=== PATIENT | male | born 1970 | race African-American/Black ===

== ENCOUNTER 2016-07-15 15:37 | Emergency (ER) | payer OTHER ==
[~2016-07-15] VITALS: Ht 180.3 cm; Wt 71.7 kg
[2016-07-15 15:49] VITALS: BP 134/66
== END 2016-07-15 16:15 | disposition home or self-care (01) ==
LOC: ER 15:39
DX: R06.02 Shortness of breath (principal); I25.2 Old myocardial infarction; J45.909 Unspecified asthma, uncomplicated; F17.210 Nicotine dependence, cigarettes, uncomplicated
CPT/HCPCS: A4606; Z7502; Z7610

== ENCOUNTER 2016-09-16 16:50 | Inpatient (IN) | payer OTHER ==
[~2016-09-16] VITALS: Ht 162.6 cm; Wt 72.6 kg
[2016-09-16] MEDS ORDERED: NITROGLYCERIN PACKET 1 GM PACKET TD ONE (17:00)
[2016-09-16] MEDS ORDERED: ONDANSETRON HCL/PF 4 MG/2 ML VIAL IVP ONE (17:00)
[2016-09-16] MEDS ORDERED: ASPIRIN 325 MG TABLET PO ONE (17:00)
[2016-09-16] MEDS ORDERED: MORPHINE SULFATE INJ 2 MG/ML DISP.SYRIN IV ONE (17:00)
--- NOTE | 2016-09-16 17:00 | NUR ---
PT BIB [facility] TO ER BED 10. IN CUSTODY. C/O SUDDEN ONSET MIDSTERNAL CHEST PAIN DESCRIBING IT PRESSURE AND SQUEEZING. PT WAS GIVEN NITRO AND ASPIRIN MANAGER PERFORMANCE W/ MINIMAL RELIEF. GOWNED AND PLACED ON MONITOR. AWAITING MD RIVERA.
--- NOTE | 2016-09-16 17:04 | NUR ---
DIRECTOR INTELLIGENCE ANALYSIS PROGRAMS AT BEDSIDE FOR BLOOD DRAW.
--- NOTE | 2016-09-16 17:05 | NUR ---
DR JACK AT BEDSIDE FOR EVAL.
[2016-09-16 17:09] LABS: EOSINOPHILS # (AUTO) 0.1 /CMM (0.0-0.7)
[2016-09-16 17:15] LABS: BASOPHILS # (AUTO) 0.3 /CMM (0.0-0.2); EOSINOPHILS % (AUTO) 1.5 % (0.0-6.0); HEMATOCRIT 45 % (39-51); HEMOGLOBIN 14.4 g/dL (13.5-17.5); LYMPHOCYTES # (AUTO) 2.1 /CMM (0.8-4.8); LYMPHOCYTES % (AUTO) 24.6 % (20.0-44.0); MEAN CORPUSCULAR HEMOGLOBIN 27 PG (26.0-33.0); MEAN CORPUSCULAR HGB CONC 32 g/dl (31.0-36.0); MEAN CORPUSCULAR VOLUME 83 fL (80-96); MONOCYTES # (AUTO) 0.5 /CMM (0.1-1.30); MONOCYTES % (AUTO) 6.3 % (2.0-12.0); NEUTROPHILS # (AUTO) 5.7 /CMM (1.8-8.9); NEUTROPHILS % (AUTO) 64.6 % (43.0-81.0); PLATELET COUNT (AUTO) 283 /CMM (150-450); RDW COEFFICIENT OF VARIATION 11.9 (11.5-15.0); WHITE BLOOD COUNT (AUTO) 8.7 K/uL (4.3-11.0)
[2016-09-16 17:19] LABS: CALCIUM, SERUM 9.2 mg/dL (8.5-10.1); CARBON DIOXIDE 28 mmol/L (21-32); CHLORIDE 104 mmol/L (98-107); CREATININE 1.1 mg/dL (0.6-1.3); GLUCOSE 111 mg/dL (74-106); POTASSIUM 3.6 mmol/L (3.5-5.1); SODIUM SERUM 139 mmol/L (136-145); UREA NITROGEN, BLOOD 13 mg/dL (7-18)
[2016-09-16 17:26] LABS: INR 0.95 (0.87-1.13); PROTHROMBIN TIME 9.9 SECS (9.5-12.7)
[2016-09-16] MEDS ORDERED: MORPHINE SULFATE INJ 4 MG/ML DISP.SYRIN ONE (17:26)
[2016-09-16] MEDS ORDERED: ASPIRIN 325 MG TABLET ONE (17:26)
[2016-09-16] MEDS ORDERED: VARE1TAB PO (17:26)
[2016-09-16] MEDS ORDERED: PROP10TA29 PO (17:26)
[2016-09-16] MEDS ORDERED: ONDANSETRON HCL/PF 4 MG/2 ML VIAL ONE (17:27)
[2016-09-16] MEDS ORDERED: NITROGLYCERIN PACKET 1 GM PACKET ONE (17:27)
[2016-09-16] MEDS ORDERED: ASPIRIN 81 MG TAB.CHEW ONE (17:32)
[2016-09-16 17:36] LABS: TROPONIN I < 0.017 ng/mL (0.00-0.056)
[2016-09-16] MEDS ORDERED: ZOLPIDEM TARTRATE 5 MG TABLET PO PRN (18:30)
[2016-09-16] MEDS ORDERED: MAG HYDROX/AL HYDROX/SIMETH 30 ML UDC PO PRN (18:30)
[2016-09-16] MEDS ORDERED: ACETAMINOPHEN 325 MG TABLET PO PRN (18:30)
[2016-09-16] MEDS ORDERED: HYDROCODONE/APAP 5/325MG 1 EACH TABLET PO PRN (18:30)
[2016-09-16] MEDS ORDERED: MAGNESIUM HYDROXIDE 30 ML UDC PO PRN (18:30)
[2016-09-16] MEDS ORDERED: Z GUARD REMEDY 2 OZ OINT TP PRN (18:30)
[2016-09-16] MEDS ORDERED: ONDANSETRON HCL/PF 4 MG/2 ML VIAL IVP PRN (18:30)
--- NOTE | 2016-09-16 19:32 | NUR ---
REPORT GIVEN TO JULIEN. AWAITING TRANSFER TO FLOOR.
--- NOTE | 2016-09-16 19:45 | NUR ---
NISSAN SALES CONSULTANT ADMIT PT ARRIVED ON UNIT, AAOX4, C/O NON-RADIATING MIDSTERNAL CP 06/18. DENIES SOB, NON-DIAPHORETIC. TELE SHOWS SR IN 70'S. VSS. IV INTACT AND PATENT. STEADY GAIT, SKIN INTACT. ORIENTATED TO UNIT AND CALL LIGHT, WILL CONT TO MONITOR. PT WAS IN CUSTODY IN E.R.
[2016-09-16 20:39] VITALS: BP 124/82
[2016-09-17 00:50] VITALS: BP 106/64
--- NOTE | 2016-09-17 03:00 | NUR ---
RN NOTE PT RESTING IN BED WITH EYES CLOSED. NO DISTRESS NOTED AT THIS TIME. WILL MONITOR.
[2016-09-17 04:58] VITALS: BP 105/52
[2016-09-17 06:30] LABS: BASOPHILS # (AUTO) 0.1 /CMM (0.0-0.2); BASOPHILS % (AUTO) 1.3 % (0.0-2.0); EOSINOPHILS # (AUTO) 0.5 /CMM (0.0-0.7); EOSINOPHILS % (AUTO) 6.2 % (0.0-6.0); HEMATOCRIT 41 % (39-51); HEMOGLOBIN 13.4 g/dL (13.5-17.5); LYMPHOCYTES # (AUTO) 3.5 /CMM (0.8-4.8); LYMPHOCYTES % (AUTO) 47.5 % (20.0-44.0); MEAN CORPUSCULAR HEMOGLOBIN 28 PG (26.0-33.0); MEAN CORPUSCULAR HGB CONC 33 g/dl (31.0-36.0); MEAN CORPUSCULAR VOLUME 84 fL (80-96); MONOCYTES # (AUTO) 0.5 /CMM (0.1-1.30); NEUTROPHILS # (AUTO) 2.8 /CMM (1.8-8.9); PLATELET COUNT (AUTO) 261 /CMM (150-450); RDW COEFFICIENT OF VARIATION 13.1 (11.5-15.0); RED BLOOD CELL COUNT(AUTO) 4.85 MIL/uL (4.5-6.0); WHITE BLOOD COUNT (AUTO) 7.4 K/uL (4.3-11.0)
[2016-09-17 06:50] LABS: ALBUMIN 3.3 g/dL (3.4-5.0); BILIRUBIN,TOTAL 0.4 mg/dL (0.2-1.0); CALCIUM, SERUM 8.7 mg/dL (8.5-10.1); CREATININE 0.9 mg/dL (0.6-1.3); MAGNESIUM 1.8 mg/dL (1.8-2.4); PHOSPHORUS 3.9 mg/dL (2.5-4.9); POTASSIUM 3.7 mmol/L (3.5-5.1); TOTAL PROTEIN, SERUM 6.4 g/dL (6.4-8.2)
--- NOTE | 2016-09-17 06:50 | NUR ---
RN NOTE NO SIGNIFICANT CHANGES OVERNIGHT. PT AAOX4, DENYING CP/SOB AT THIS TIME. SKIN WARM TO TOUCH. IV INTACT AND PATENT. TELE ATTACHED. TO SEE ARCHIT[employer] TODAY. WILL F/U WITH DAY SHIFT FOR [facility].
[2016-09-17 06:51] LABS: THYROID STIMULATING HORMONE 1.617 uIU/mL (0.358-3.74)
[2016-09-17 07:10] VITALS: BP 112/69
--- NOTE | 2016-09-17 07:28 | NUR ---
AM RN NOTE Received patient awake, A/O X4 verbally responsive. Denies any pain or discomfort at this time. On tele monitor, SR. Bed in low locked position. Will continue to monitor.
[2016-09-17 08:00] VITALS: BP 119/76
--- NOTE | 2016-09-17 08:50 | NUR ---
AM RN NOTE Patient awake, A/O X4 verbally responsive. Denies any chest pain or discomfort at this time. Pt wanta to leave AMA, spoke to pt and he agreed to wait for doctor. Seen and assessed by Pedro Staples MOTOR HOTEL MANAGER with discharge order. Patient refused discharge instructions and also refused discharge papers to take home. CN (Amy) made aware. HL and ID band removed. Pt discharged/ left unit at this time.
[2016-09-17] MEDS ORDERED: NICOTINE PATCH (14MG) 14 MG PATCH.TD24 TD SCH (09:00)
[2016-09-17] MEDS ORDERED: ASPIRIN 81 MG TAB.CHEW PO SCH (09:00)
[2016-09-17] MEDS ORDERED: THIAMINE HCL 100 MG TABLET PO SCH (09:00)
[2016-09-17] MEDS ORDERED: PROPRANOLOL HCL 10 MG TABLET PO SCH (09:00)
== END 2016-09-17 08:59 | disposition home or self-care (01) | DRG 313 ==
LOC: ER 16:53 → TELE 18:54
PROVIDERS: ADMIT Nurse Practitioner Acute Care; ATTEND Nurse Practitioner Acute Care
DX: R07.89 Other chest pain (principal); I10 Essential (primary) hypertension; J45.909 Unspecified asthma, uncomplicated; I25.2 Old myocardial infarction; F17.200 Nicotine dependence, unspecified, uncomplicated; Z79.899 Other long term (current) drug therapy
CPT/HCPCS: 36415; 71010-TC; 80048-TC; 80053-TC; 80061-TC; 83735-TC; 84100-TC; 84443-TC; 84484-TC; 85025-TC; 85730-TC; 87081-TC; A4606; J2270; J2405; Z7610

== ENCOUNTER 2017-04-17 20:56 | Emergency (ER) | payer SELFPAY ==
[~2017-04-17] VITALS: Ht 180.3 cm; Wt 76.2 kg
[~2017-04-17 20:56] MED LIST: PROP10TA68 PO; VARE1TAB PO
--- NOTE | 2017-04-17 23:00 | NUR ---
PT AMBULATORY TO ER BED 11. C/O SOB. HX OF ASTHMA. STATES RAN OUT OF INHALER. DENIES CHEST PAIN. PLACED ON MONITOR.VSS. AWAITING MD RIVERA.
--- NOTE | 2017-04-17 23:10 | NUR ---
YANA THOMPSON AT BEDSIDE FOR EVAL.
--- NOTE | 2017-04-17 23:20 | NUR ---
CALLED RT FOR BREATHING TREATMENT.
[2017-04-17] MEDS ORDERED: predniSONE 20 MG TABLET PO ONE (23:30)
[2017-04-17] MEDS ORDERED: ALBUTEROL FS 2.5 MG/3 ML VIAL.NEB NEB ONE (23:30)
[2017-04-17] MEDS ORDERED: IPRATROPIUM NEB FS 0.5 MG/2.5 ML AMPUL.NEB NEB ONE (23:30)
[2017-04-17] MEDS ORDERED: predniSONE 20 MG TABLET ONE (23:31)
[2017-04-17] MEDS ORDERED: IPRATROPIUM NEB FS 0.5 MG/2.5 ML AMPUL.NEB ONE (23:33)
[2017-04-17] MEDS ORDERED: ALBUTEROL FS 2.5 MG/3 ML VIAL.NEB ONE (23:33)
--- NOTE | 2017-04-17 23:36 | NUR ---
RT AT BEDSIDE FOR BREATHING TREATMENT.
--- NOTE | 2017-04-17 23:45 | NUR ---
REPORT TO CHARGE NURSE TOMY FOR [facility].
[2017-04-18 01:26] VITALS: BP 124/64
== END 2017-04-18 01:27 | disposition home or self-care (01) ==
LOC: ER 21:06
DX: J45.901 Unspecified asthma with (acute) exacerbation (principal); F10.10 Alcohol abuse, uncomplicated; I10 Essential (primary) hypertension; F17.200 Nicotine dependence, unspecified, uncomplicated; Z60.2 Problems related to living alone
CPT/HCPCS: 94640 ×2; 99284; A4606; J7512; Z7610

== ENCOUNTER 2018-05-11 16:07 | Emergency (ER) | payer MEDICAID, OTHER ==
[~2018-05-11] VITALS: Ht 180.3 cm; Wt 80.3 kg
--- NOTE | 2018-05-11 16:07 | NUR ---
BIB [employer] W C/O MIDSTERNAL CHEST PAIN, NON RADIATING, 162 ASA AND 1 SPRAY OF NITRO GIVEN IN THE FIELD, TO ER BED 7, HOOKED TO MONITOR, AWAITING MD RIVERA.
--- NOTE | 2018-05-11 16:15 | NUR ---
DR DORMAN AT BEDSIDE
[2018-05-11] MEDS ORDERED: ASPIRIN 81 MG TAB.CHEW ONE (16:23)
[2018-05-11] MEDS ORDERED: ASPIRIN 81 MG TAB.CHEW PO ONE (16:30)
[2018-05-11 16:39] LABS: BASOPHILS # (AUTO) 0.1 /CMM (0.0-0.2); BASOPHILS % (AUTO) 1.8 % (0.0-2.0); EOSINOPHILS % (AUTO) 0.5 % (0.0-6.0); HEMATOCRIT 42 % (39-51); HEMOGLOBIN 13.9 g/dL (13.5-17.5); LYMPHOCYTES # (AUTO) 1.5 /CMM (0.8-4.8); MEAN CORPUSCULAR HGB CONC 33 g/dl (31.0-36.0); MEAN CORPUSCULAR VOLUME 83 fL (80-96); MONOCYTES # (AUTO) 0.5 /CMM (0.1-1.30); MONOCYTES % (AUTO) 8.2 % (2.0-12.0); NEUTROPHILS # (AUTO) 3.9 /CMM (1.8-8.9); NEUTROPHILS % (AUTO) 64.5 % (43.0-81.0); PLATELET COUNT (AUTO) 276 /CMM (150-450); RED BLOOD CELL COUNT(AUTO) 5.09 MIL/uL (4.5-6.0)
[2018-05-11 16:48] LABS: CALCIUM, SERUM 9.4 mg/dL (8.5-10.1); CARBON DIOXIDE 29 mmol/L (21-32); CHLORIDE 105 mmol/L (98-107); CREATININE 1.1 mg/dL (0.6-1.3); GLUCOSE 95 mg/dL (74-106); POTASSIUM 4.1 mmol/L (3.5-5.1); SODIUM SERUM 139 mmol/L (136-145); UREA NITROGEN, BLOOD 21 mg/dL (7-18)
[2018-05-11 17:01] LABS: ALANINE AMINOTRANSFERASE 43 U/L (12-78); ALBUMIN 4.2 g/dL (3.4-5.0); ALKALINE PHOSPHATASE 73 U/L (46-116); ASPARTATE AMINOTRANSFERASE 25 U/L (15-37); BILIRUBIN,DIRECT 0.1 mg/dL (0.0-0.2); BILIRUBIN,TOTAL 0.3 mg/dL (0.2-1.0); TOTAL PROTEIN, SERUM 7.8 g/dL (6.4-8.2)
[2018-05-11 17:03] LABS: B-TYPE NATRIURETIC PEPTIDE 6 PG/ML (0-125)
[2018-05-11] MEDS ORDERED: ONDANSETRON HCL/PF 4 MG/2 ML VIAL ONE (18:18)
[2018-05-11] MEDS ORDERED: ONDANSETRON HCL/PF - ER 4 MG/2 ML VIAL IV ONE (18:30)
--- NOTE | 2018-05-11 18:30 | NUR ---
[facility] [phone]
--- NOTE | 2018-05-11 18:45 | NUR ---
PT VERBALIZED THAT HE HAS PLANS TO KILL HIMSELF BY HANGING HIMSELF, MADE MD AWARE
--- NOTE | 2018-05-11 22:00 | NUR ---
IV removed. Catheter intact and site benign. Pressure and 4x4 applied to site. No bleeding noted.
--- NOTE | 2018-05-11 22:04 | NUR ---
Patient discharged in custody of [employer] in stable condition. Written and verbal after care instructions given. Patient verbalizes understanding of instruction.
[2018-05-11 22:06] VITALS: BP 156/103
== END 2018-05-11 22:07 ==
LOC: ER 16:09
DX: R07.89 Other chest pain (principal); I10 Essential (primary) hypertension; J45.909 Unspecified asthma, uncomplicated; F17.200 Nicotine dependence, unspecified, uncomplicated; Z60.2 Problems related to living alone; Z79.899 Other long term (current) drug therapy
CPT/HCPCS: 36415; 71045; 80048; 80076; 80305; 83880; 84484 ×2; 85025; 93005 ×2; 96374; 99284; A4606; J2405